=== PATIENT | male | born 1970 | race Caucasian/White ===

== ENCOUNTER 2024-03-24 10:03 | Emergency (ER) | payer OTHER ==
[~2024-03-24] VITALS: Ht 185.4 cm; Wt 107.7 kg
[2024-03-24 11:03] VITALS: BP 144/76; PULSE 77; RESP 16; TEMP 98.5; O2SAT 98
== END 2024-03-24 11:05 | disposition home or self-care (01) ==
LOC: ER 10:05
DX: U07.1 COVID-19 (principal); J22 Unspecified acute lower respiratory infection; Z88.8 Allergy status to other drugs, medicaments and biological substances
CPT/HCPCS: 99281